=== PATIENT | male | born 1985 | race Caucasian/White ===

== ENCOUNTER 2018-08-03 09:33 | Emergency (ER) | payer SELFPAY ==
[~2018-08-03] VITALS: Ht 182.9 cm; Wt 86.2 kg
[~2018-08-03 09:33] MED LIST: AC500T PO; ACHD5005 PO; CEPH500C PO; CPR500T PO; IBP800T PO
--- OUTSIDE RECORDS SUMMARY | 2018-08-03 09:38 | XMS REPORT ---
Author Author CINDA PATEL Organization [employer] Address Unknown Phone Unavailable Care Team Providers Care Overhead Door Technician Name Role Phone CINDA PATEL Unavailable Allergies No Known Allergies Problems Problem Type Condition Code Onset Dates Condition Status Assessment Other unknown and unspecified cause of morbidity or mortality R69 Active Medications No Known Medications Procedures Procedure Coding System Code Date No Charge CPT-4 59215 Aug 27, 2015 Results No Known Results Summary Purpose [employer] Submission
--- OUTSIDE RECORDS SUMMARY | 2018-08-03 09:38 | XMS REPORT ---
Author Author YUMIKO SHELLEY Organization [employer] Address Unknown Phone Unavailable Care Team Providers Care Relations Specialist Name Role Phone YUMIKO SHELLEY CP Unavailable Allergies No Known Allergies Problems Problem Type Condition Code Onset Dates Condition Status Assessment Anxiety disorder, unspecified F41.9 Active Problem Anxiety disorder, unspecified F41.9 Active Medications No Known Medications Procedures Procedure Coding System Code Date Psych diagnostic evaluation, new patient CPT-4 64587 Oct 08, 2015 Results No Known Results Summary Purpose [employer] Submission
--- OUTSIDE RECORDS SUMMARY | 2018-08-03 09:39 | XMS REPORT | Continuity of Care Document ---
Author Author [facility] Organization [facility] Address Unknown Phone Unavailable Allergies Active Description Code Type Severity Reaction Onset Reported/Identified Relationship to Patient Clinical Status Yes No Known Drug Allergies [id number] Drug Allergy Unknown N/A 03/21/2012 Medications There is no data. Problems There is no data. Procedures There is no data. Results There is no data. Encounters ACCT No. Visit Date/Time Discharge Status Pt. Type Provider Facility Loc./Unit Complaint [id number] 02/24/2016 09:01:00 02/24/2016 23:59:59 CLS Outpatient [facility]LE [facility] SR VICE PRESIDENT [facility] QUICK
--- NOTE | 2018-08-03 10:16 | ED Lower Extremity ---
General Chief Complaint: Lower Extremity Stated Complaint: LEFT FOOT PAIN Nursing Triage Note: PT CO OF L FOOT PAIN AT BALL OF FOOT. PT DENIES INJURY AT THIS X. Nursing Sepsis Screen: No Definite Risk Source: patient History of Present Illness Date Seen by Provider: Aug 03, 2018 Time Seen by Provider: 09:40 Initial Comments PT ARRIVES VIA POV C/O PAIN TO BALL OF LEFT FOOT FOR 1 1/2 -2 WEEKS NO KNOWN INJURY NO SORES/WOUNDS, ETC. NO PARESTHESIAS OR MOTOR DEFICITS NO PRIOR PROBLEMS WITH THIS FOOT NO NEW SHOES OR ACTIVITIES--WORKS AT [facility] NO D[facility]islinn Allergies and Home Medications Allergies Coded Allergies: No Known Drug Allergies (Unverified , 03/21/12) Home Medications No Active Prescriptions or Reported Meds Review of Systems Constitutional: no symptoms reported Musculoskeletal: see HPI Skin: no symptoms reported Psychiatric/Neurological: No Symptoms Reported Past Zjkxhjl-Jqnajp-Dctxzx Hx Patient Social History Alcohol Use: Denies Use Recreational Drug Use: No Smoking Status: Current Someday Smoker Type Used: Cigarettes Recent Foreign Travel: No Contact w/Someone Who Travel: No Recent Infectious Disease Expo: No Recent Hopitalizations: No Physical Abuse: No Sexual Abuse: No Immunizations Up To Date Tetanus Booster (TDap): Unknown Past Medical History Surgeries: Yes (nasal surgery) Nose Respiratory: No Cardiac: No Neurological: Yes Reproductive Disorders: No Sexually Transmitted Disease: No HIV/AIDS: No Genitourinary: No Gastrointestinal: Yes Ulcer Musculoskeletal: No Endocrine: No HEENT: Yes (NASAL SURGERY ) Cancer: No Psychosocial: No Integumentary: Yes (MRSA) Blood Disorders: No Physical Exam Vital Signs Vital Signs - First Documented 08/03/18 09:40 Temp 97.4 Pulse 98 Resp 18 B/P (MAP) 173/100 (124) Pulse Ox 100 Capillary Refill : Less Than 3 Seconds Height, Weight, BMI Height: 6'0" Weight: 190lbs. oz. 86.249950ny; BMI Method:Stated General Appearance: WD/WN, no apparent distress Procedures/Interventions Splinting and Joint Reduction : Splints: Post Op Shoe Progress/Results/Core Measures Results/Orders My Orders Orders - SIN VANN DO Foot, Left, 3 Views (08/03/18 09:49) Vital Signs/I&O 08/03/18 09:40 Temp 97.4 Pulse 98 Resp 18 B/P (MAP) 173/100 (124) Pulse Ox 100 Blood Pressure Mean: 124 Diagnostic Imaging Comments XRAYS LEFT FOOT--NO ACUTE PROCESS, PER RADIOLOGIST REPORT @ 1033 Reviewed: Reviewed by Me Departure Impression Primary Impression: Left foot pain Disposition: HOME, SELF-CARE Condition: Stable Departure-Patient Inst. Referrals: NO,LOCAL PHYSICIAN (PCP/Family) Primary Care Physician Patient Instructions: Metatarsalgia (DC) Add. Discharge Instructions: WEAR POST OP SHOE FOR COMFORT ELEVATE FOOT MUCH POSSIBLE FOLLOW UP WITH OF CHOICE IN 1 WEEK FOR FURTHER CARE All discharge instructions reviewed with patient and/or family. Voiced understanding. Scripts Naproxen (Naproxen) 500 Mg Tablet 500 MG PO BID, #20 TAB Prov: SIN VANN DO 08/03/18 Work/School Note: Local Medical Staff Listing, Work Release Form Date Seen in the Emergency Department: Aug 03, 2018 Return to Work: Aug 04, 2018 SIN VANN DO Aug 03, 2018 10:16
--- NOTE | 2018-08-03 10:23 | Diagnostic Imaging Report ---
INDICATION: Left foot pain. TIME OF EXAM: 10:22 AM 3 views of the left foot were obtained. FINDINGS: The metatarsals are intact. No periosteal reaction or stress reaction is seen. Phalanges are intact. Midfoot and hindfoot are unremarkable. No fractures are seen. IMPRESSION: No acute bony abnormality is identified. Dictated by: Dictated on workstation # [id number]
[2018-08-03] MEDS ORDERED: NAPR-915 PO (10:37)
[2018-08-03 11:04] VITALS: BP 146/97
== END 2018-08-03 11:05 | disposition home or self-care (01) ==
LOC: EDUNIT# 09:33 → ER 09:35
DX: M79.672 Pain in left foot (principal); F17.210 Nicotine dependence, cigarettes, uncomplicated; Z87.19 Personal history of other diseases of the digestive system; Z86.14 Personal history of Methicillin resistant Staphylococcus aureus infection
CPT/HCPCS: 73630